=== PATIENT | male | born 1955 | race Caucasian/White ===

== ENCOUNTER 2018-03-14 16:53 | Outpatient (REF) | payer BC, SELFPAY ==
[2018-03-14 22:10] LABS: ALT 202 U/L (12-78); AST 109 U/L (15-37); Alkaline Phosphatase 71 U/L (46-116); Anion Gap 10.9 mmol/L (3-11); BUN 15 mg/dL (7-18); Bilirubin, Total 0.8 mg/dL (0.2-1.0); CO2 26.1 mmol/L (21.0-32.0); CREATININE 1.36 mg/dL (0.70-1.30); Calcium 9.7 mg/dL (8.5-10.1); Chloride 100 mmol/L (98-107); Cholesterol 204 mg/dL (50-200); Glucose 145 mg/dL (70-100); HDL Cholesterol 68 mg/dL (40-60); LDL CHOLESTEROL 80 mg/dL (<100); Potassium 3.9 mmol/L (3.5-5.1); Sodium 137 mmol/L (136-145); Total Protein 8.1 g/dL (6.4-8.2); Triglyceride 157 mg/dL (30-150)
[2018-03-14 22:15] LABS: Hemoglobin A1C 5.7 % (4.5-6.2)
== END 2018-03-14 17:13 ==
LOC: NCHCN 16:53
PROVIDERS: PCP Family Medicine; Visit Provider Family Medicine
DX: Z00.00 Encounter for general adult medical examination without abnormal findings (principal); E78.5 Hyperlipidemia, unspecified; I10 Essential (primary) hypertension; E66.9 Obesity, unspecified
CPT/HCPCS: 80053; 80061; 83721; 83036

== ENCOUNTER 2018-05-21 17:35 | Outpatient (REF) | payer BC, SELFPAY ==
[2018-05-21 22:38] LABS: ALT 149 U/L (12-78); AST 109 U/L (15-37); Albumin 3.7 g/dL (3.4-5.0); Alkaline Phosphatase 79 U/L (46-116); Bilirubin, Total 0.7 mg/dL (0.2-1.0); Total Protein 8.1 g/dL (6.4-8.2)
== END 2018-05-21 17:55 ==
LOC: NCHCN 17:35
PROVIDERS: PCP Family Medicine; Visit Provider Family Medicine
DX: K70.0 Alcoholic fatty liver (principal)
CPT/HCPCS: 80076

== ENCOUNTER 2018-10-08 08:19 | Outpatient (REF) | payer BC, SELFPAY ==
[2018-10-08 22:41] LABS: ALT 170 U/L (12-78); AST 103 U/L (15-37); Albumin 3.8 g/dL (3.4-5.0); Alkaline Phosphatase 76 U/L (46-116); Anion Gap 10.7 mmol/L (3-11); BUN 13 mg/dL (7-18); Bilirubin, Total 1.1 mg/dL (0.2-1.0); CO2 28.3 mmol/L (21.0-32.0); CREATININE 0.99 mg/dL (0.70-1.30); Calcium 9.4 mg/dL (8.5-10.1); Chloride 100 mmol/L (98-107); Glucose 142 mg/dL (70-100); Potassium 4.9 mmol/L (3.5-5.1); Sodium 139 mmol/L (136-145)
== END 2018-10-08 08:39 ==
LOC: NCHCN 08:19
PROVIDERS: PCP Family Medicine; Visit Provider Family Medicine
DX: I10 Essential (primary) hypertension (principal); R05 Cough; K70.0 Alcoholic fatty liver; R74.0 Nonspecific elevation of levels of transaminase and lactic acid dehydrogenase [LDH]
CPT/HCPCS: 80053; 83036

== ENCOUNTER 2019-03-17 11:25 | Outpatient (REF) | payer BC, SELFPAY ==
[2019-03-17 21:26] LABS: HCT 47.4 % (40.0-50.0); HGB 16.9 g/dL (13.5-17.5); Mean Corp. HGB Concentration 35.7 g/dL (32.0-36.0); Mean Corpuscular Hemoglobin 32.3 pg (27.0-33.0); Mean Corpuscular Volume 90.6 fL (80-95); Mean Platelet Volume 10.4 fL (8.0-11.0); Platelet Count 256 x1000/uL (130-400); RBC 5.23 m/cumm (4.50-6.00); RBC Distribution Width 13.2 % (11.8-14.1); White Blood Cell Count 5.94 k/cumm (4.4-10.8)
[2019-03-17 21:40] LABS: Calculated LDL 114 mg/dL; Cholesterol 209 mg/dL (<200); HDL Cholesterol 70 mg/dL (40-60); Triglyceride 129 mg/dL (<150)
[2019-03-18 22:51] LABS: ALT 140 U/L (16-63); AST 95 U/L (15-37); Albumin 4.1 g/dL (3.4-5.0); Alkaline Phosphatase 68 U/L (46-116); Anion Gap 12.3 mmol/L (3-11); BUN 13 mg/dL (7-18); Bilirubin, Total 0.6 mg/dL (0.2-1.0); CO2 26.7 mmol/L (21.0-32.0); CREATININE 1.09 mg/dL (0.70-1.30); Calcium 9.5 mg/dL (8.5-10.1); Chloride 101 mmol/L (98-107); Glucose 130 mg/dL (74-106); Potassium 3.9 mmol/L (3.5-5.1); Sodium 140 mmol/L (136-145); Total Protein 8.2 g/dL (6.4-8.2)
== END 2019-03-17 11:45 ==
LOC: NCHCN 11:25
PROVIDERS: PCP Family Medicine; Visit Provider Family Medicine
DX: I10 Essential (primary) hypertension (principal); R73.03 Prediabetes; K70.0 Alcoholic fatty liver; Z00.00 Encounter for general adult medical examination without abnormal findings; E78.5 Hyperlipidemia, unspecified
CPT/HCPCS: 80053; 80061; 85027; 83036

== ENCOUNTER 2019-03-24 10:19 | Outpatient (REF) | payer BC, SELFPAY ==
[2019-03-24 20:19] LABS: Glucose 146 mg/dL (74-106)
== END 2019-03-24 10:39 ==
LOC: NCHCN 10:19
PROVIDERS: PCP Family Medicine; Visit Provider Family Medicine
DX: R73.03 Prediabetes (principal)
CPT/HCPCS: 82947

== ENCOUNTER 2020-03-25 11:03 | Outpatient (REF) | payer BC, SELFPAY ==
[2020-03-25 20:52] LABS: ALT 99 U/L (16-63); AST 58 U/L (15-37); Albumin 3.8 g/dL (3.4-5.0); Alkaline Phosphatase 70 U/L (46-116); Anion Gap 13.4 mmol/L (3-11); BUN 13 mg/dL (7-18); Bilirubin, Total 0.6 mg/dL (0.2-1.0); CO2 23.6 mmol/L (21.0-32.0); CREATININE 1.17 mg/dL (0.70-1.30); Calcium 8.8 mg/dL (8.5-10.1); Calculated LDL 86 mg/dL (<100); Chloride 99 mmol/L (98-107); Cholesterol 169 mg/dL (<200); Glucose 132 mg/dL (74-106); HDL Cholesterol 52 mg/dL (40-60); Potassium 3.7 mmol/L (3.5-5.1); Sodium 136 mmol/L (136-145); Total Protein 7.7 g/dL (6.4-8.2); Triglyceride 158 mg/dL (<150)
[2020-03-25 21:31] LABS: Hemoglobin A1C 5.5 % (<5.7)
== END 2020-03-25 11:23 ==
LOC: NCHCN 11:03
PROVIDERS: PCP Family Medicine; Visit Provider Family Medicine
DX: E11.9 Type 2 diabetes mellitus without complications (principal); E78.5 Hyperlipidemia, unspecified
CPT/HCPCS: 80053; 80061; 83036

== ENCOUNTER 2020-03-29 20:45 | Outpatient (REF) | payer BC, SELFPAY ==
[2020-03-29 21:32] LABS: COMMENT (LAB VIEW ONLY) 294.15 mg/dL; Microalb ug/mg Crea 8.7 ug/mg Cr
== END 2020-03-29 21:05 ==
LOC: NCHCN 20:45
PROVIDERS: PCP Family Medicine; Visit Provider Family Medicine
DX: E11.9 Type 2 diabetes mellitus without complications (principal)
CPT/HCPCS: 82043; 82570

== ENCOUNTER 2020-04-28 14:06 | Outpatient (REF) | payer BC, SELFPAY ==
[2020-04-28 13:12] LABS: BUN 10 mg/dL (7-18); Chloride 100 mmol/L (98-107); Glucose 138 mg/dL (74-106); Potassium 3.5 mmol/L (3.5-5.1); Sodium 138 mmol/L (136-145)
== END 2020-04-28 14:26 ==
LOC: NCHCN 14:06
PROVIDERS: PCP Family Medicine; Visit Provider Nurse Practitioner Family
DX: I10 Essential (primary) hypertension (principal)
CPT/HCPCS: 80048

== ENCOUNTER 2021-03-16 17:16 | Outpatient (REF) | payer MEDICARE, SELFPAY ==
[2021-03-16 22:55] LABS: Hemoglobin A1C 5.7 % (<5.7)
[2021-03-16 23:08] LABS: ALT 171 U/L (16-63); AST 130 U/L (15-37); Albumin 4.2 g/dL (3.4-5.0); Alkaline Phosphatase 92 U/L (46-116); Anion Gap 10.4 mmol/L (3-11); BUN 11 mg/dL (7-18); Bilirubin, Total 0.8 mg/dL (0.2-1.0); CO2 29.6 mmol/L (21.0-32.0); CREATININE 1.2 mg/dL (0.70-1.30); Calcium 9.4 mg/dL (8.5-10.1); Calculated LDL 80 mg/dL (<100); Chloride 100 mmol/L (98-107); Cholesterol 181 mg/dL (<200); Glucose 139 mg/dL (74-106); HDL Cholesterol 84 mg/dL (40-60); Sodium 140 mmol/L (136-145); Total Protein 8.4 g/dL (6.4-8.2); Triglyceride 86 mg/dL (<150)
[2021-03-16 23:21] LABS: Microalb ug/mg Crea 80.6 ug/mg Cr
== END 2021-03-16 17:17 | disposition home or self-care (01) ==
LOC: NCHCN 17:16
PROVIDERS: PCP Family Medicine; Visit Provider Family Medicine
DX: Z00.00 Encounter for general adult medical examination without abnormal findings (principal); I10 Essential (primary) hypertension; E11.9 Type 2 diabetes mellitus without complications
CPT/HCPCS: 80053; 80061; 82043; 82570; 83036

== ENCOUNTER 2021-05-25 18:34 | Outpatient (REF) | payer MEDICARE, SELFPAY ==
[2021-05-25 16:44] LABS: Anion Gap 12.8 mmol/L (3-11); BUN 12 mg/dL (7-18); CO2 23.2 mmol/L (21.0-32.0); CREATININE 1.1 mg/dL (0.70-1.30); Calcium 9.1 mg/dL (8.5-10.1); Chloride 101 mmol/L (98-107); Glucose 111 mg/dL (74-106); Potassium 4.1 mmol/L (3.5-5.1); Sodium 137 mmol/L (136-145)
== END 2021-05-25 18:35 | disposition home or self-care (01) ==
LOC: NCHCN 18:34
PROVIDERS: PCP Family Medicine; Visit Provider Family Medicine
DX: I10 Essential (primary) hypertension (principal)
CPT/HCPCS: 80048

== ENCOUNTER 2021-07-10 15:42 | Outpatient (REF) | payer MEDICARE, SELFPAY ==
[2021-07-10 20:42] LABS: Abs Immature Grans 0.02 10^3/uL (0.0-0.06); Absolute Basophil Count 0.08 10^3/uL (0.0-0.2); Absolute Eosinophil Count 0.14 10^3/uL (0.0-0.7); Absolute Lymphocyte Count 1.24 10^3/uL (1.2-3.4); Absolute Monocyte Count 0.61 10^3/uL (0.1-0.8); Absolute Neutrophil Count 4.56 10^3/uL (1.2-6.7); Basophils % 1.2; Eosinophils % 2.1; HGB 16.9 g/dL (13.5-17.5); Immature Grans % 0.3; Lymphocytes % 18.6; MCH 32.4 pg (27.0-33.0); MPV 10.1 fL (8.0-11.0); Monocytes % 9.2; Neutrophils % 68.6; Nucleated RBC 0 %; Platelet Count 272 10^3/uL (130-400); RBC 5.22 10^6/uL (4.36-5.78); RDW 12.5 % (11.8-14.1); RDW-SD 41.3 fL; WBC 6.65 10^3/uL (4.4-10.8)
[2021-07-10 20:47] LABS: ALT 145 U/L (16-63); AST 129 U/L (15-37); Albumin 3.8 g/dL (3.4-5.0); Alkaline Phosphatase 86 U/L (46-116); Bilirubin, Direct 0.3 mg/dL (0.0-0.2); Bilirubin, Total 0.8 mg/dL (0.2-1.0); Total Protein 7.8 g/dL (6.4-8.2)
[2021-07-10 21:38] LABS: Ferritin > 2000 ng/mL (26-388)
[2021-07-12 11:27] LABS: Hepatitis B Surface Ag Negative (Negative)
[2021-07-12 11:28] LABS: HBs Antibody, Quant <3.1 mIU/mL (See Note); Hepatitis B Surface Ab Negative (See Note)
[2021-07-12 12:07] LABS: Hepatitis C Ab w Rflx HCV PCR Negative (Negative)
[2021-07-12 12:19] LABS: Hep B Core Antibody Negative (Negative)
[2021-07-12 12:23] LABS: Hep A Total Ab w Rflx IgM Negative (Negative)
== END 2021-07-10 15:43 | disposition home or self-care (01) ==
LOC: LBN 15:42
PROVIDERS: PCP Family Medicine; Visit Provider Internal Medicine
DX: R94.5 Abnormal results of liver function studies (principal)
CPT/HCPCS: 80076; 86704; 86706; 86709; 86803; 87340; 82728; 85025

== ENCOUNTER 2021-07-31 11:57 | Outpatient (REF) | payer MEDICARE, SELFPAY ==
[2021-07-31 16:58] LABS: Iron 175 ug/dL (65-175); Total Iron Binding Capacity 305 ug/dL (250-450)
== END 2021-07-31 11:58 | disposition home or self-care (01) ==
LOC: LBN 11:57
PROVIDERS: PCP Family Medicine; Visit Provider Internal Medicine
DX: R94.5 Abnormal results of liver function studies (principal)
CPT/HCPCS: 83540; 83550

== ENCOUNTER 2021-08-15 13:11 | Outpatient (REF) | payer MEDICARE, SELFPAY ==
--- OUTSIDE RECORDS SUMMARY | 2021-08-15 13:18 | XMS_ITS | CCD ---
:1955 Author Care Team Providers Name Role Phone GUY FELDER Attending Physician Unavailable Vital Signs Unknown or Not Available. Allergies Allergy Code Allergy Type Reaction Status No Known Drug Allergies 0 No known drug allergies Active Procedures Unknown or Not Available. History of Immunizations Unknown or Not Available. Problems Unknown or Not Available. Results Unknown or Not Available. Active Medications Unknown or Not Available. Medications Administered During Visit Unknown or Not Available. Encounters Encounter Diagnosis Diagnosis Code Start Date Encounter for screening for cardiovascular Z136 03/27/2021 disorders Social History Smoking Status Code Start Date End Date Never smoker [id number] Patient Decision Aids Unknown or Not Available. Discharge Instructions You were admitted to [facility] on 03/27/2021 07:42 with a principal diagnosis of Encounter for screening for cardiovascular disorders You were discharged from [facility] on 03/27/2021 07:42 Should you have any questions prior to d ischarge, please contact a member of your healthcare team. If you have left the spital and have any questions, please contact your primary care physician. Chief Complaint and Reason For Visit Chief Complaint Date of Onset FORMER SMO[employer] Function Status Unknown or Not Available. Plan of Care Unknown or Not Available. Referral/Transition of Care Unknown or Not Available.
[2021-08-18 10:04] LABS: Specimen WB Whole Blood
== END 2021-08-15 13:12 | disposition home or self-care (01) ==
LOC: LBN 13:11
PROVIDERS: PCP Family Medicine; Visit Provider Internal Medicine
DX: R94.5 Abnormal results of liver function studies (principal)
CPT/HCPCS: 81256

== ENCOUNTER 2024-10-28 18:26 | Outpatient (REF) | payer MEDICARE, SELFPAY ==
[2024-10-28 17:00] LABS: HCT 47.2 % (40.0-50.0); HGB 16.8 g/dL (13.5-17.5); MCH 32.1 pg (27.0-33.0); MCHC 35.6 % (32.0-36.0); MCV 90 fL (80-95); MPV 10.8 fL (8.0-11.0); Platelet Count 329 10^3/uL (130-400); RBC 5.24 10^6/uL (4.36-5.78); RDW 12.4 % (11.8-14.1); RDW-SD 39.8 fL; WBC 6.00 10^3/uL (4.4-10.8)
[2024-10-28 17:18] LABS: ALT 106 U/L (16-63); AST 81 U/L (15-37); Albumin 4.0 g/dL (3.4-5.0); Alkaline Phosphatase 89 U/L (46-116); Anion Gap 10.7 mmol/L (3-11); BUN 13 mg/dL (7-18); Bilirubin, Total 1.0 mg/dL (0.2-1.0); CO2 26.3 mmol/L (21.0-32.0); Calcium 9.5 mg/dL (8.5-10.1); Calculated LDL 80 mg/dL (<100); Chloride 97 mmol/L (98-107); Cholesterol 171 mg/dL (<200); Estimated GFR 81.47 (mL/min/1.73m2); Glucose 122 mg/dL (74-106); HDL Cholesterol 79 mg/dL (>or=40); Potassium 4.7 mmol/L (3.5-5.1); Sodium 134 mmol/L (136-145); Total Protein 8.6 g/dL (6.4-8.2); Triglyceride 64 mg/dL (<150)
[2024-10-28 17:24] LABS: Hemoglobin A1C 5.2 % (<5.7)
[2024-10-29 19:11] LABS: PSA, Screening 0.7 ng/mL (<=4.5)
== END 2024-10-28 18:27 | disposition home or self-care (01) ==
LOC: NCHCN 18:26
PROVIDERS: PCP Family Medicine; Visit Provider Physician Assistant
DX: I25.10 Atherosclerotic heart disease of native coronary artery without angina pectoris (principal); Z13.1 Encounter for screening for diabetes mellitus; Z12.5 Encounter for screening for malignant neoplasm of prostate
CPT/HCPCS: 80053; 80061; 84153; 85027; 83036